=== PATIENT | female | born 2005 | race Caucasian/White ===

== ENCOUNTER 2025-02-03 19:08 | Emergency (ER) | payer BC, SELFPAY ==
--- OUTSIDE RECORDS SUMMARY | 2024-12-21 13:00 | XMS_ITS | Encounter Summary ---
Author Organization [facility] Address [address] [place] [address] Care Team Providers Care Carpenter'S Helper Name Role Phone Severino Lazo MD Primary Care Provider Reason for Visit * Reason Comments ROUTINE HEALTH MAINTENANCE Encounter Details Date Type Department Care Team (Latest Contact Info) Description 12/21/2024 1:00 PM CDT Office Visit [facility] [address] [place] [phone] [place] [address] [place] [address] Adult general medical examination (Primary Dx); Counseling for control, oral contraceptives Social History Tobacco Use Types Packs/Day Years Used Date Smoking Tobacco: Never Smokeless Tobacco: Never Alcohol Use Standard Drinks/Week Comments Never 0 (1 standard drink = 0.6 oz pur e alcohol) PHQ-2 Answer Date Recorded PHQ-2 Score 0 12/30/2023 AUDIT-C Answer Date Recorded Q1: How often do you have a drink containing alc ohol? Monthly or less 12/21/2024 Q2: How many drinks containi ng alcohol do you have on a typical day when you are drinking? 1 or 2 12/21/2024 Q3: How often do you have si x or more drinks on one occasion? Never 12/21/2024 Hunger Vital Sign Answer Date Recorded Within the past 12 months, y ou worried that your food would run out before you got the money to buy more. Never true 12/22/19 25 Within the past 12 months, t he food you bought just didn't last and you didn't have money to get more. Never true 12/21/2024 PRAPARE - Transportation Answer Date Re corded In the past 12 months, has l ack of transportation kept you from medical appointments or from getting medications? No 12/09 In the past 12 months, has l ack of transportation kept you from meetings, work, or from getting things needed for daily living? No 12/21/2024 Housing Stability Vital Sign Answer Darion e Recorded In the last 12 months, was t here a time when you were not able to pay the mortgage or rent on time? No 12/21/2024 In the past 12 months, how m any times have you moved where you were living? 2 12/21/2024 At any time in the past 12 m [facility], were you homeless or living in a halfway (including now)? No 12/21/2024 Comments No Sex and Gender Information Value Date Recorded Sex Assigned at Not on file Legal Sex Female 4:56 PM SQL ARCHITECT Gender Identity Not on file Sexual Orientation Not on file documented as of this encounter Last Filed Vital Signs Vital Sign Reading Time Taken Comments Blood Pressure 118/74 12/21/2024 12:58 PM CDT Pulse 56 12/21/2024 12:58 PM CDT Temperature - - Respiratory Rate - - Oxygen Saturation - - Inhaled Oxygen Concentration - - Weight 60.3 kg (133 lb) 12/21/2024 12:58 PM CDT Height 169 cm (5' 6.54) 12/21/2024 12:58 PM CDT Body Mass Index 21.12 12/21/2024 12:58 PM CDT documented in this encounter Functional Status * AUDIT-C Score Answer Date of Assessment Author 1 12/21/2024 1:11 PM CDT Yemi Lazo MD * Question Answer Date of Assessment Author Q1: How often do you have a drink containing alcohol? Monthly or less 12/21/2024 1:11 PM YULIAT Severino Lazo MD Q2: How many drinks containing alcohol do you have on a typical day when you are drinking? 1 or 2 12/21/2024 1:11 PM CDT Jazzy Lazo MD Q3: How often do you have six or more drinks on one occasion? Never 12/21/2024 1:11 PM CDT Severino Lazo MD documented as of this encounter Patient Instructions * Patient Instructions* Say, Eufemia Bragg LPN - 12/21/2024 1:00 PM CDT 18 to 21 Years: Well Exam for Young Adults Guidelines for healthy growth and development For help after hours: [facility] patients contact the Nurse Line at [phone]. [facility] patients should contact the Careline at [phone] or [phone]. Hgrc-hyb-nwjzhou medicine Aspirin: DO NOT USE Acetaminophen (Tylenol or Tempra) dose: Please see approved dosing tables or confirm dose with yourclinic. Ibuprofen (Advil or Motrin) dose: Please see approved dosing tables or confirm dose with your clinic. Measurements Weight: 133 lb (60.3 kg) Height: 5' 6.54 (1.69 m) Blood Pressure: 118/74 Blood pressure %barbara are not available for patients who are 18 years or older. Body Mass Index: Estimated body mass index is 21.12 kg/m?? as calculated from the following: Height as of this encounter: 5' 6.54 (1.69 m). Weight as of this encounter: 133 lb (60.3 kg). Nutrition Eat 3 nutritious meals a day, including breakfast. Healthy food choices include low-fat or skim (fat free) milk, yogurt, fruits, vegetables, whole grains, lean meats and beans. Choose water instead of soda, sports drinks or coffee. Limit foods high in fat or sugar, such as candy, chips and soda. Physical activity Get at least 60 minutes of physical activity a day. You do not have to do the 60 minutes of activity all at once. Break activity up into several shorter times throughout the day. Drink plenty of water during physical activity to help prevent cramps, exhaustion and heat stroke. Limit screen time to no more than 2 hours a day, including TV, DVDs, video games, texting and computer time other than for work or school. Social and emotional health Staying connected with family is important. Family can help you solve problems and support you during difficult situations. If you feel depressed or alone, or are having difficulty solving a problem, reach out for help and support. Making and maintaining friendships is an important life skill. Knowing when a friendship is no longer good for you also is important. As you leave high school and pursue new goals and interests, you may interact less with some friends. Changing friendships is a normal part of growing up and becoming an adult. Support friends who choose not to use tobacco, alcohol, drugs, steroids or diet pills. Avoid situations where drugs or alcohol are available. Stay involved in activities that allow you to express yourself and to learn--to be you and enjoy life. Experiencing alternating periods of good and bad times, or feeling up and down in daily life, is normal as you get older and take on more responsibility. Identify positive coping skills to deal with stress. Find nonviolent ways to handle your anger or fear. Walk away if necessary. Fighting and carrying weapons can be dangerous. School performance Get 9 hours of sleep every night. Not getting enough sleep can affect your ability to learn, listen, concentrate and solve problems. Go to bed and get up at the same time each day, even on weekends. Turn off cell phones and other electronic devices at least an hour before bed. Use the bedroom only for sleep. Keep your room quiet and dark. Set a regular time and place to do homework. The room should be quiet and free from distractions, such as TV, cell phones, music or videos. Take responsibility for getting to a job or school and getting your homework done on time. Regular attendance at school is important. Start sharing and discussing your future plans and goals for college and work with your family, teachers and school guidance counselor. Sexuality Abstaining from vaginal, anal and oral sex is the safest way to prevent and sexually transmitted diseases (STD). If sexually active, reduce the risk of infection with an STD by using a condom with vaginal, anal and oral sex every time. Using a condom and another type of prescription control with sexual intercourse is important to prevent . Talk to your clinician. Healthy dating relationships are built on respect, concern and enjoying activities together. When dating, or in any sexual situations, ???No?? means NO. Listen to and respect what another person is telling you. Saying ???No?? is OK. Plan how you can avoid risky places and relationships. For example, using drugs or alcohol can raise the risk of unwanted sex or other risky behaviors. Safety Make healthy decision about sex, tobacco, alcohol and other drugs. Take a self-defense class to learn how to protect yourself. Do not get in a car with someone you do not know or who has been drinking alcohol or using drugs. Have a plan for how to get help if you are feeling unsafe. Call for help if a situation gets dangerous. If you drink alcohol, do not drink when driving, swimming, boating, riding a bike or motorcycle or when responsible for younger children. Do not text or talk on a cell phone while driving. Silence your phone and put it where you cannot reach or see it to avoid using while driving. If you need to use your phone, drive to a safe place and come to a complete stop first. Wear protective gear and use safety equipment when playing sports, including a mouth guard. Always wear a helmet when skateboarding, snowboarding, skiing and riding a bike, motorcycle or ATV. Always wear your seat belt. Wear earplugs or other ear protection when you are exposed to loud noises, such as music concerts, lawn equipment or other loud working conditions. Put on sunscreen with SPF 30 or higher 30 minutes before you go outside. Reapply sunscreen every 2 to 4 hours or after you have been in the water or sweating. [facility] [place] your teeth 2 times a day and floss at least 1 time a day. Visit the dentist every 6 months. Healthcare decisions You have the right to have all medical information kept private, including from your parents, unless you are in a special guardianship. You will need to give your doctor and healthcare team permission to talk to your parents, even about making appointments. Take responsibility with your healthcare. Schedule your own appointments. Talk honestly and openly with your clinician about your symptoms, medical history and lifestyle. Understand your medical condition, if you have one. Know what medications you need to take and how to get prescriptions refilled. Understand your healthcare insurance benefits. Websites [facility]: www.[employer] [facility]: www.[employer] [facility]: www.[facility] [place]: www.[facility]: www.[facility] [place] [employer]: www.healthychildren.org [facility] Participates in the Vaccines for Children Program (VFC) Children 18 years of age and younger are eligible for free vaccines through the VFC program at [facility] if they: Are enrolled in: A CrossReader Healthcare Program ([place] SEC Watch, [facility] or a prepaid Medical Assistance Program [place] Medicaid Do not have health insurance Are of or [place] heritage The VFC program covers the cost of routine vaccines. There is a fee to cover the cost of giving thevaccine. The fee is $21.22 for [place] participants and $20.83 for [place] participants. If youhave insurance through a [place] Healthcare Program or [place] Medicaid, you are not billed forthis fee. Other patients are billed for it. If you receive a bill for the cost of the vaccine or if you are unable to pay the administration fee, please contact Customer Service at: [facility] [phone] [facility], [facility] [phone] or [facility] [phone] [facility] [phone] [facility] [phone] [facility] [phone] [facility] [phone] [facility] [phone] Children who have health insurance but, the insurance does not pay for immunizations can get low-cost immunizations at [facility]. For more information, see Can My Child Get Free or Low Cost Shots? on the Critical access hospital's website, or Immunizations: Vaccines for Children Program Information for Parents and Patients on the [facility] website For next Well Child Check, return in 1 year. documented in this encounter Progress Notes * Severino Lazo MD - 12/21/2024 1:00 PM CDT Subjective: Lourdes Pope is a 19 y.o. female presenting for a Well Child Visit. Chief Complaint: Chief Complaint Patient presents with ROUTINE HEALTH MAINTENANCE Accompanied by: Unaccompanied Concerns: None Needs refill of OCP. No side effects. No history of blood clot, migraine with aura, tobacco use or hypertension Studying vet medicine Normal diet, eats variety of foods Stays active[place] Objective: Vitals: BP 118/74 (BP Location: Left Arm, BP Cuff Size: Regular) Pulse (!) 56 Ht 5' 6.54 (1.69m) Wt 133 lb (60.3 kg) BMI 21.12 kg/m?? General: Active, alert, no distress Head: Normal Eyes: Appear normal ENT: Ears: No deformity, Normal TM's, Nose: Normal, no obstruction, and Mouth: Normal, palate intact Neck: Normal, full range of motion, no mass, no thyromegaly Chest: Normal respiratory effort, lungs clear to auscultation, normal shape, normal breathing pattern Heart: Regular rate and rhythm, normal heart sounds, no murmurs Abdomen: Normal appearance, soft, non-tender Genitourinary: deferred Musculoskeletal: Extremities normal Skin: No rashes or lesions Neurologic: Non focal, normal gait Assessment: Lourdes was seen today for routine health maintenance. Diagnoses and all orders for this visit: Adult general medical examination No concerns. Declined MenB after discussion. Declined STI screening Counseling for control, oral contraceptives Needs refill of OCP. No side effects. No history of blood clot, migraine with aura, tobacco use or hypertension - norgestimate-eth estradiol (JUAN J) 0.25-35 MG-MCG tablet; Take 1 Tablet by mouth daily. See patient instructions for details Social and environmental risks assessed and concerns addressed. Social Emotional Screening: Normal, concerns addressed Immunizations: Immunizations some/all were deferred/declined after discussion of risks of deferringimmunizations. Declined MenB Dental: Dental hygiene discussed and verbal referral for dental visit provided. Routine anticipatory guidance discussed with caregiver and concerns addressed. Hailee Lazo MD documented in this encounter Plan of Treatment Not on file documented as of this encounter Visit Diagnoses Diagnosis Adult general medical examination- Primary Unspecified general medical examination Counseling for control, oral contraceptives General counseling for prescription of oral contraceptives documented in this encounter Care Teams Carpenter'S Helper Relationship Specialty [place] [address] [place] [address] PCP - General Family Practice 12/21/24 documented as of this encounter
[2025-02-03] VITALS (17 sets, daily range): BP systolic 108–136; BP diastolic 67–96; PULSE 60–82; RESP 12–18; TEMP 36.8; O2SAT 88–100; BMI 21.8
--- OUTSIDE RECORDS SUMMARY | 2025-02-03 19:10 | XMS_ITS | Clinical Summary ---
Author Organization [facility] Address [address] [place] [address] Care Team Providers Care Nocturnist Physician Name Role Phone [facility] Primary Care Provider Allergies No known active allergies Medications No known medications Social History Tobacco Use Types Packs/Day Years Used Date Smoking Tobacco: Never Assessed Adolescent Education Answer Date Record ed Getting School Help Needed Not on file 08/19 Comments No Sex and Gender Information Value Date Recorded Sex Assigned at Not on file Legal Sex Female 4:49 AM CDC ASSOCIATE Gender Identity Not on file Sexual Orientation Not on file Last Filed Vital Signs Vital Sign Reading Time Taken Comments Blood Pressure 112/78 08/21/2023 11:30 AM CDT Pulse 109 08/21/2023 11:30 AM CDT Temperature 37.7 C (99.8 F) 08/21/2023 10:15 AM CDT Respiratory Rate 18 08/21/2023 7:49 AM CDT Oxygen Saturation 98% 08/21/2023 11: 30 AM CDT Inhaled Oxygen Concentration - - Weight 60.7 kg (133 lb 13.1 oz) 08/21/2023 7:49 AM CDT Height 167.6 cm (5' 6) 08/21/2023 7:49 AM CDT Body Mass Index 21.6 08/21/2023 7:49 AM CDT Plan of Treatment Health Maintenance Due Date Last Done Comments ADVANCE CARE PLANNING 2004 ANNUAL REVIEW OF HM ORDERS 2004 YEARLY PREVENTIVE VISIT 11/15/2007 HIV SCREENING 11/15/2019 MENINGITIS B VACCINE (1 of 2 - Standard) 2020 HEPATITIS C SCREENING 2022 PHQ-2 (once per calendar year) 2024 CHLAMYDIA SCREENING 05/29/2024 05/29/2023 COVID-19 VACCINE ( season) 2025 05/27/2021, 10/17/2020, 09/26/2020 INFLUENZA VACCINE (#1) 2025 , 03/08/2020, 02/21/2019, Additional history exists DTAP/TDAP/TD VACCINE (7 - Td or Tdap) 12/23/2025 12/24/2015, 12/26/2011, 04/07/2006, Additional history exists ZOSTER VACCINE (1 of 2) 2054 HEPATITIS B VACCINE Completed 08/18/2005, 05/28/2005, 04/11/2005 PNEUMOCOCCAL VACCINE: PEDIATRICS (0 to 5 YEARS) AND AT-RISK PATIENTS (6 to 49 YEARS) Aged Out 11/26/2005, 08/18/2005, 05/28/2005, Additional history exists No longer eligible based on patient's age to complete this topic HPV VACCINE Completed 03/08/2020, 02/21/2019 MENINGITIS VACCINE Completed 04/29/2021, 12/24/[address] [place] [address] WITH [facility] WITH BS Care Teams Nocturnist Physician Relationship Specialty Start Date End Date [address] [address] PCP - General 08/20/23
--- OUTSIDE RECORDS SUMMARY | 2025-02-03 19:10 | XMS_ITS | Clinical Summary ---
Author Organization [facility] Address [address] [place] [address] Care Team Providers Care Sander Portable Machine Name Role Phone Severino Lazo MD Primary Care Provider Source Comments You are receiving this document as you are listed as the primary care provider,follow-up provider, or the patient has been referred to you for consultation.This is in compliance with the Medicare andPeoples Hospitalca[facility] EHR Incentive Program,which states Providers who transition their patient to another setting of careor provider of care or refers their patient to another provider of care shouldprovide summary care record for each transition of care or referral. [facility] Allergies No known active allergies Medications norgestimate-eth estradiol (JUAN J) 0.25-35 MG-MCG tabletIndications:C ounseling for control, oral contraceptives Take 1 Tablet by mouth daily. 84 Tablet 3 5 Active Active Problems Problem Noted Date Diagnosed Date Healthy infant 04/30/2012 Overview (12/31/2016): Healthy infant or child Encounters Date Type Department Care Team Description 12/21/2024 1:00 PM CDT Office Visit [facility] [address] [place] [phone] Severino Lazo MD Adult general medical examination (Primary Dx); Counseling for control, oral contraceptives from Last 3 Months Immunizations Immunization Administration Dates Next Due 9vHPV (Gardasil 9) 03/08/2020,02/21/2019 DTaP 04/07/2006 NUmB-OruG-QFV (Pediarix) 08/18/2005,05/28/2005,1 2004 DTaP-IPV (Kinrix, 4-6 yrs) 12/26/2011 HepA Ped/Adol (1-18 yrs) 06/24/2006,11/26/2005 Hib (ActHIB) 04/07/2006 Hib (PedvaxHIB) 05/28/2005,04/11/2005 Influenza IIV4 (Quadrivalent ) 0.5mL (30331) 04/29/2021,03/08/2020,02/21/2019,2015,01/11/2014 Influenza LAIV3 2-49 years (Flumist) 03/30/2015 Influenza Vaccine TIV 6-35 m onths 100% Pres Free (Imm Clinic) 04/07/2006,05/28/2005 MCV4 Menveo 2m.+ (two vial) 04/29/2021, 6 MMR 12/26/2011,04/07/2006 MMRV (ProQuad) 04/07/2006 Pfizer Monovalent 12+ Purple Top 05/27/2021,06/0 01/2021,09/26/2020 Pneumococcal 7, PED 11/26/2005, 6,05/28/2005,2004 Tdap 12/24/2015 Varicella 12/26/2011,04/07/2006 Family History Medical History Relation Name Comments Asthma Negative Family History Diabetes Negative Family History Heart Negative Family History Relation Name Status Comments Father Alive Mother Alive Brother 1 Alive Brother 2 Alive Sister Alive Social History Tobacco Use Types Packs/Day Years Used Date Smoking Tobacco: Never Smokeless Tobacco: Never Tobacco Cessation:Counseling Given: Not Answered Alcohol Use Standard Drinks/Week Comments Never 0 [...] any time in the past 12 m [facility], were you homeless or living in a detention (including now)? No 12/21/2024 Comments No Sex and Gender Information Value Date Recorded Sex Assigned at Not on file Legal Sex Female 4:56 PM TOOL AND DIE REPAIR Gender Identity Not on file Sexual Orientation Not on file Last Filed Vital Signs Vital Sign Reading Time Taken Comments Blood Pressure 118/74 12/21/2024 12:58 PM CDT Pulse 56 12/21/2024 12:58 PM CDT Temperature 36.6 C (97.9 F) 05/12/2024 3:28 PM TOOL AND DIE REPAIR Respiratory Rate 18 04/21/2024 12:12 PM TOOL AND DIE REPAIR Oxygen Saturation 98% 05/12/2024 3:54 PM TOOL AND DIE REPAIR Inhaled Oxygen Concentration - - Weight 60.3 kg (133 lb) 12/21/2024 12:58 PM CDT Height 169 cm (5' 6.54) 12/21/2024 12:58 PM CDT Body Mass Index 21.12 12/21/2024 12:58 PM CDT Plan of Treatment Health Maintenance Due Date Last Done Comments MenB Immunization Discussion 2004 Chlamydia 10/19/2024 10/20/2023, 05/29/2023 COVID-19 Vaccine ( season) 2025 05/27/2021, 10/17/2020, 09/26/2020 Influenza Vaccine (#1) 2025 , 03/08/2020, 02/21/2019, Additional history exists Adult Preventive Visit 12/21/2025 , 12/30/2023, 07/24/2022, Additional history exists DTaP/Tdap/Td Vaccine (7 - Tdap) 12/23/2025 12/24/2015, 12/26/2011, 04/07/2006, Additional history exists Zoster/Shingles Vaccine (1 of 2) 2054 HepB Vaccine Completed 08/18/2005, 05/11, 04/11/2005 Pneumococcal Vaccine Aged Out 11/26/2005, 08/18/2005, 05/28/2005, Additional history exists No longer eligible based on patient's age to complete this topic Hib Vaccine Completed 04/07/2006, 05/11, 04/11/2005 HepA Vaccine Completed 06/24/2006, 11/26/2005 IPV (Polio) Vaccine Completed 12/26/2011, 08/18/2005, 05/28/2005, Additional history exists Varicella Vaccine Completed 12/26/2011, , 04/07/2006 HPV Vaccine Completed 03/08/2020, 02/21/2019 MCV4 Vaccine Completed 04/29/2021, 12/24/2015 HIV Screening (Preventive Services) Completed 10/20/2023 Hep C Screening (Preventive Services) Completed 12/30/2023 Procedures Procedure Name Priority Date/Time Associated Diagnosis Comments HEPATITIS C ANTIBODY, WITH REFLEX (ANTI-HCV) Routine 12/30/2023 4:01 PM CDT Need for hepatitis C screening test HIV 1/2 AG/AB 4TH GEN Routine 10/20/2023 11:30 AM CDT Dysuria CHLAMYDIA & GC (14 YEARS & OLDER) Routine 10/20/2023 11:14 AM CDT Dysuria from Last 3 Months or Most Recently Relevant to Health Maintenance Results * Hepatitis C Antibody, with Reflex (12/30/2023 4:01 PM CDT) Hepatitis C Antibody Negative (Non Reactive) Negative (Non Reactive) 12/30/2023 9:18 PM CDT [facility] Comment:Antibodies to HCV no t detected. Does not exclude the possiblity of exposure to HCV. Blood Venipuncture / Unknown 12/30/2023 4:01 PM CDT 12/30/2023 4:01 PM CDT us Silvia Mena BS LAB_1 Final Result [facility] [address] * HIV 1/2 Ag/Ab 4th Generation (10/20/2023 11:30 AM CDT) HIV 1/2 Antigen/Antib shiraz (4th generation) Negative (Non Reactive) Negative (Non Reactive) 10/20/2023 5:44 PM CDT [facility] Comment:HIV-1 p24 Antigen an d HIV-1/HIV-2 Antibody not detected Blood Venipuncture / Unknown 10/20/2023 11:30 AM CDT 10/20/2023 11:30 AM CDT us Fred Zuniga MBBS LAB_1 Final Result [facility] [address] [place], [place] [id number] [place] [address] * Chlamydia & GC (14 Years and Older): Vagina (10/20/2023 11:14 AM CDT) Chlamydia Trachomatis STD Not Detected Not Detected 10/20/2023 11:56 PM CDT [facility] N. gonorrhoeae STD Not Detected Not Detected 10/20/2023 11:56 PM CDT [facility] Swab STD SPECIMEN FROM VAGINA / Unknown Non-blood Collection / Unknown 10/20/2023 11:14 AM CDT 10/20/2023 11:28 AM CDT Narrative [facility] - 10/20/2023 11:56 PM CDT Test performed by Fire Sprinkler Service Technician Mediated Amplification (TMA). Fred BERNAL LAB_1 Final Result [facility] [address] from Last 3 Months or Most Recently Relevant to Health Maintenance Insurance [facility] Care Teams Sander Portable Machine Relationship Specialty [place] [address] [place] [address] PCP - General Family Practice 12/21/24
--- OUTSIDE RECORDS SUMMARY | 2025-02-03 19:10 | XMS_ITS | Encounter Summary ---
[facility] Address [address] [place] [address] Care Team Providers Care Linux Systems Analyst Name Role Phone Severino Lazo MD Primary Care Provider Encounter Details Date Type Department Care Team (Late st Contact Info) Description 01/13/2018 Correspondence [facility] [address] [place], [place] [id number] Tika Muñoz, PC ANALYST, WEATHERIZATION DIRECTOR [address] [facility] [address] [place] [address] [employer] Social History Tobacco Use Types Packs/Day Years Used Date Smoking Tobacco: Never Smokeless Tobacco: Never Comments Unknown Sex and Gender Information Value Date Recorded Sex Assigned at Not on file Legal Sex Female 4:56 PM TONAL REGULATOR Gender Identity Not on file Sexual Orientation Not on file documented as of this encounter Plan of Treatment Not on file documented as of this encounter Visit Diagnoses Not on filedocumented in this encounter Care Teams Linux Systems Analyst Relationship Specialty [place] [id number] [place] [address] PCP - General Family Practice 12/21/24 documented as of this encounter
--- NOTE | 2025-02-03 19:21 | CRLHL7_ITS ---
For Patients: As a result of the Century Cures Act, medical imaging exams and procedure reports are released immediately into your electronic medical record. You may view this report before your referring provider. If you have questions, please contact your health care provider. INDICATION: Trauma. COMPARISON: None. TECHNIQUE: Noncontrast CT cervical spine. FINDINGS: Straightening of the normal cervical desist which may be secondary to muscle spasm patient positioning. Normal vertebral body facet alignment. No fractures. No vertebral body loss of height. No spondylolisthesis. No fractures of the visualized upper ribs. C1-2: No spinal canal narrowing. C2-3: No spinal canal or neural foraminal narrowing. C3-4, C4-5 and C5-6: No spinal canal or neural foraminal narrowing. C6-7: No spinal canal or neural foraminal narrowing. C7-T1: No spinal canal for neural foraminal narrowing. Lung apices are clear. IMPRESSION: 1. Straightening of the midcervical lordosis. Otherwise, normal alignment. No fractures. 2. No prevertebral soft tissue swelling. 3. No spinal canal or neural foraminal narrowing at all levels. Please note that all CT scans at this facility use dose modulation, iterative reconstruction, and/or weight-based dosing when appropriate to reduce radiation dose to as low as reasonably achievable. Dictated by Constantino Washington MD @ 02/03/2025 8:12:09 PM (Electronically Signed)
--- NOTE | 2025-02-03 19:21 | CRLHL7_ITS ---
For Patients: As a result of the Century Cures Act, medical imaging exams and procedure reports are released immediately into your electronic medical record. You may view this report before your referring provider. If you have questions, please contact your health care provider. INDICATION: Trauma. Thrown from horse COMPARISON: None. TECHNIQUE: Noncontrast CT head. FINDINGS: Normal brain parenchymal morphology. No acute intracranial hemorrhage, acute infarct, focal edema, mass effect, or fracture. No midline shift. No abnormal ventricular dilatation. Normal calvarium and skull base. Mastoid air cells are clear. Near complete opacification of the paranasal sinuses. IMPRESSION: 1. No acute intracranial abnormality. 2. Near complete opacification of the paranasal sinuses. Please note that all CT scans at this facility use dose modulation, iterative reconstruction, and/or weight-based dosing when appropriate to reduce radiation dose to as low as reasonably achievable. Dictated by Constantino Washington MD @ 02/03/2025 8:07:22 PM (Electronically Signed)
--- NOTE | 2025-02-03 19:21 | CRLHL7_ITS ---
For Patients: As a result of the Century Cures Act, medical imaging exams and procedure reports are released immediately into your electronic medical record. You may view this report before your referring provider. If you have questions, please contact your health care provider. Indication: From horse Technique: Volumetric multidetector CT images of the chest were obtained after the administration of IV contrast. 75 cc Isovue 370 low osmolar intravenous contrast Comparison: None available. Findings: The thoracic inlet and thyroid gland are unremarkable. The thoracic aorta is nonaneurysmal. There is no central filling defect to suggest pulmonary embolism. There is no mediastinal, hilar or axillary adenopathy. The trachea and bronchi are well aerated without significant bronchiectasis. There is demonstration of a trace focal contusion and likely pneumatocele versus trace pneumothorax appreciated within the right posterior superior upper lobe best appreciated on series 6, image 79. The visualized ribs are grossly intact without evidence of displaced rib injury. Mildly comminuted fracture of the mid right clavicle is appreciated. There is no evidence of pulmonary mass or suspicious pulmonary nodule. The partially visualized upper abdominal viscera are within normal limits. The thoracic vertebral body heights remain intact alignment without significant degenerative change or acute osseous abnormality. Impression: 1. Demonstration of a focal pulmonary contusion within the posterior superior aspect of the right lower lobe with likely an associated pneumatocele versus a trace focal pneumothorax seen best on series 6 images 79 through 82. 2. Comminuted fracture of the mid right clavicle. 3. Otherwise, no evidence of a displaced rib fracture or large volume pneumothorax/acute cardiopulmonary abnormality. Please note that all CT scans at this facility use dose modulation, iterative reconstruction, and/or weight-based dosing when appropriate to reduce radiation dose to as low as reasonably achievable. Dictated by Jonah Shen MD @ 02/03/2025 8:32:02 PM (Electronically Signed)
--- NOTE | 2025-02-03 19:27 | CRLHL7_ITS ---
For Patients: As a result of the Cures Act, medical imaging exams and procedure reports are released immediately into your electronic medical record. You may view this report before your referring provider. If you have questions, please contact your health care provider. INDICATION: Fall from horse. Comparison none. TECHNIQUE: Single view of the chest. FINDINGS: Displaced fracture of the mid right clavicle. No fractures visualized ribs. Lungs are clear. No pleural effusions. No pneumothorax. Normal cardiomediastinal silhouette. IMPRESSION: Displaced fracture of the mid right clavicle. Dictated by Constantino Washington MD @ 02/03/2025 7:49:33 PM (Electronically Signed)
[2025-02-03 19:57] LABS: Albumin* 4.6 g/dL (3.3-5.0); Chloride* 104 mmol/L (96-114); Potassium* 4.1 mmol/L (3.6-5.1); Sodium* 141 mmol/L (135-149)
[2025-02-03 20:00] LABS: Alanine Aminotransferase* 35 U/L (4-35); Alkaline Phosphatase* 70 U/L (40-150); Anion Gap 10 mEq/L (7-15); Aspartate Amino Transferase* 81 U/L (12-35); Bilirubin Total* 0.3 mg/dL (0.1-1.5); Blood Urea Nitrogen* 15 mg/dL (5-24); Calcium* 9.2 mg/dL (8.4-10.6); Carbon Dioxide* 27 mmol/L (20-32); Creatinine* 0.9 mg/dL (0.5-1.5); Est. Creatinine Clearance* 93.34; Estimated Glomerular Filt Rate 94 ml/min; Glucose* 99 mg/dL (60-115); Total Protein* 8.2 g/dL (6.0-8.3)
--- NOTE | 2025-02-03 20:19 | ED.GENADULT ---
HPI - General Adult General Date Seen: 02/03/25 Chief complaint: Fall/Minor Trauma Stated complaint: Thrown from horse, hit head, R shoulder injury Time Seen by Provider: 02/03/25 19:20 History of Present Illness HPI narrative: Patient is a 19-year-old young woman who is here with her mom after being thrown from a horse. Worse was going at some speed and she went over the front of it, she landed primarily on her right shoulder. She did hit her head, was not wearing a helmet. No loss of consciousness, does not have a severe headache but does have a little bit of a headache. Has some pain primarily in the right collarbone which radiates into the right shoulder and a little bit into the right neck but she does not have any posterior cervical pain. It hurts to breathe but she is not short of breath. She denies any abdominal or isolated back pain, does not have any weakness or numbness, difficulty moving her arms or legs with the exception of her right arm which is painful in the shoulder. General health is good, no medications aside from control and no medication allergies. Related Data Home Medications ?Medication ?Instructions ?Recorded ?Confirmed norgestimate 0.25 mg-ethinyl 1 tab PO DAILY 02/03/25 02/03/25 estradiol 0.035 mg tablet (Aure) Allergies Allergy/AdvReac Type Severity Reaction Status Date / Time No Known Drug Allergies Allergy Verified 02/03/25 19:47 Review of Systems Status of ROS: Reports: 10 or more systems reviewed and unremarkable except as noted in History and below PFSH [facility] Social History Smoking Status: Never smoker Do you use any of these nicotine containing products: None Second hand tobacco smoke exposure: No How often do you have a drink containing alcohol: never AUDIT-C Alcohol total score: 0 Non-prescribed substance use: denies use service: No Exam Narrative: Exam Narrative: Primary survey: Airway: Patent. Breathing: Nonlabored. Lungs clear. Circulation: Pulses intact. No external bleeding. Disability: GCS 15. Secondary survey: Vital signs reviewed In general, an alert, nontoxic young woman. She looks uncomfortable. Head: Normocephalic, atraumatic. Eyes: Pupils are equal reactive. Extraocular movements full. ENT: No facial trauma. Dentition intact. Neck: No midline cervical tenderness. No anterior neck trauma. Chest: No visible signs of chest trauma. No tenderness to palpation. Heart regular rate and rhythm. Lungs clear bilaterally. Abdomen: No visible signs of trauma. Soft, nondistended, nontender to palpation. Back: No visible signs of trauma. Nontender to palpation throughout the spine. Pelvis: Stable, nontender. Extremities: There is visible deformity over the clavicle on the right and tenderness in this area. No other clear shoulder injury. Distal CMS intact in the right arm. Other extremities are atraumatic. Neurologic: Alert, conversant, moves all extremities to command. Skin: Warm and dry, no abrasions or lacerations. Const: Vital Signs, click to edit/add: Vital Signs - 24 hr 02/03/25 19:12 02/03/25 19:24 02/03/25 19:26 Temperature 98.2 F Pulse Rate 60 60 Pulse Rate [Pulse Oximeter] 80 Respiratory Rate 16 Blood Pressure 113/81 Blood Pressure [Ri ght Forearm] 123/67 Pulse Oximetry 97 97 99 Oxygen Delivery Me thod Room Air 02/03/25 19:34 02/03/25 19:40 02/03/25 20:06 Temperature Pulse Rate 66 66 60 Pulse Rate [Pulse Oximeter] Respiratory Rate Blood Pressure Blood Pressure [Ri ght Forearm] Pulse Oximetry 100 97 100 Oxygen Delivery Me thod 02/03/25 20:08 02/03/25 20:10 02/03/25 20:11 Temperature Pulse Rate 60 73 66 Pulse Rate [Pulse Oximeter] Respiratory Rate 16 12 13 Blood Pressure 121/88 129/84 Blood Pressure [Ri ght Forearm] Pulse Oximetry 100 99 99 Oxygen Delivery Me thod 02/03/25 20:20 02/03/25 20:22 02/03/25 20:23 Temperature Pulse Rate 82 79 75 Pulse Rate [Pulse Oximeter] Respiratory Rate 13 18 18 Blood Pressure 136/83 Blood Pressure [Ri ght Forearm] Pulse Oximetry 88 96 93 Oxygen Delivery Me thod 02/03/25 20:32 02/03/25 20:40 02/03/25 20:41 Temperature Pulse Rate 71 68 Pulse Rate [Pulse Oximeter] Respiratory Rate 13 17 13 Blood Pressure 108/86 119/96 H Blood Pressure [Ri ght Forearm] Pulse Oximetry 100 100 Oxygen Delivery Me thod 02/03/25 21:00 02/03/25 21:02 Temperature Pulse Rate 62 72 Pulse Rate [Pulse Oximeter] Respiratory Rate 13 17 Blood Pressure 125/77 Blood Pressure [Ri ght Forearm] Pulse Oximetry 99 98 Oxygen Delivery Me thod Course Course ED Course: She presented by private vehicle, TTA was called on her arrival to the ER. She had a portable chest x-ray which by my review showed a clavicle fracture, did not see evidence of pneumothorax. CT scans done of the head, cervical spine, chest. By my review the head CT does not show any evidence of hemorrhage or fracture. Radiology reads the CT of the cervical spine is negative for any acute findings, some straightening of the normal cervical lordosis. Labs are reviewed and unremarkable. I reviewed all of the radiology reports, head and neck read as negative for acute findings. Chest CT read as showing the clavicle fracture as previously demonstrated on chest x-ray. They also note a tiny area of pulmonary contusion and a little focal collection of either pneumatocele or localized pneumothorax. I did agree review the images, I can see the area that is being mention by the radiologist although it is very subtle. I discussed these findings with Dr. Parks and she reviewed the CT as well. Patient is comfortable at this time, breathing easily, does not complain of chest pain or difficulty breathing, O2 sats are 100% on room air. Overall, I do not think transfer to a trauma center is indicated. Dr. Parks likewise agreed that transfer and even admission here is likely not needed given her overall clinical picture. Discussed all this with the patient and her mom. Offered observation here for few hours if they would like, but she says she would just prefer to go home. Patient will prescribe oxycodone for her in addition to scheduled ibuprofen and/or Tylenol. A sling was provided. I gave her a note for school, she apparently goes to school up in [place] would have a [address] I think is going to be difficult to do with her clavicle in the next few days here. Recommended orthopedic follow-up for the clavicle. Reviewed reasons to return in terms of chest pain, shortness of breath, they are comfortable with discharge. Vital Signs Vital signs: Initial Vital Signs Temperature 98.2 F 02/03/25 19:12 Temperature Source Temporal Artery Scan 02/03/25 19:12 Pulse Rate 80 02/03/25 19:12 Respiratory Rate 16 02/03/25 19:12 Blood Pressure 123/67 02/03/25 19:12 Blood Pressure Mean 85 02/03/25 19:12 Pulse Oximetry 97 02/03/25 19:12 Oxygen Delivery Method Room Air 02/03/25 19:12 Vital Signs Temperature 98.2 F 02/03/25 19:12 Pulse Rate 80 02/03/25 19:12 Respiratory Rate 16 02/03/25 19:12 Blood Pressure 123/67 02/03/25 19:12 Pulse Oximetry 97 02/03/25 19:12 Oxygen Delivery Method Room Air 02/03/25 19:12 Temperature 98.2 F 02/03/25 19:12 Pulse Rate 72 02/03/25 21:02 Respiratory Rate 17 02/03/25 21:02 Blood Pressure 125/77 02/03/25 21:02 Pulse Oximetry 98 02/03/25 21:02 Oxygen Delivery Method Room Air 02/03/25 19:12 Medications Administered Medications: Discontinued Medications Generic Name Dose Route Start Last Admin Trade Name Freq PRN Reason Stop Dose Admin Hydromorphone HCl 0.5 mg 02/03/25 19:20 02/03/25 19:30 Hydromorphone 0.5 Mg/0.5 Ml Inj IVP 02/03/25 19:21 0.5 mg ONCE ONE Administration Sodium Chloride 1,000 mls @ 1,000 mls/hr 02/03/25 19:30 02/03/25 19:30 0.9 % Sodium Chloride 1000 Ml IV 02/03/25 20:29 1,000 mls/hr .Q1H [facility] Administration Medical Decision Making Lab Data Labs: Lab Results 02/03/25 Range/Units 19:22 WBC 7.29 (4.50-11.00) K/uL RBC 4.52 (4.00-5.20) m/uL Hgb 13.4 (12.0-16.0) gm/dL Hct 40.4 (33.0-51.0) % MCV 89 (80-100) fL MCH 30 (26-34) pg MCHC 33 (32-36) gm/dL RDW Coeff of Russell 11.6 (11.5-15.5) % Plt Count 339 (140-440) K/uL Neut % (Auto) 50.7 (42.0-72.0) % Lymph % (Auto) 40.1 (20-44) % [place] % (Auto) 5.3 (0.0-11.0) % Eos % (Auto) 3.3 (0.0-7.0) % Baso % (Auto) 0.5 (0.0-3.0) % Neut # (Auto) 3.69 (1.7-7.0) K/uL Lymph # (Auto) 2.92 H (0.90-2.90) K/uL [place] # (Auto) 0.40 (0.00-0.90) K/UL Eos # (Auto) 0.24 (0.00-0.50) K/uL Baso # (Auto) 0.04 (0.00-0.30) K/uL Abs Immat Gran (auto) 0.01 (0.00-0.30) K/uL Imm/Tot Granulo (auto) 0.1 % Sodium 141 (135-149) mmol/L Potassium 4.1 (3.6-5.1) mmol/L Chloride 104 (96-114) mmol/L Carbon Dioxide 27 (20-32) mmol/L Anion Gap 10 (7-15) mEq/L BUN 15 (5-24) mg/dL Creatinine 0.9 (0.5-1.5) mg/dL Estimated Creat Clear 93.34 Estimated GFR 94 ml/min Glucose 99 (60-115) mg/dL Calcium 9.2 (8.4-10.6) mg/dL Total Bilirubin 0.3 (0.1-1.5) mg/dL AST 81 H (12-35) U/L ALT 35 (4-35) U/L Alkaline Phosphatase 70 (40-150) U/L Total Protein 8.2 (6.0-8.3) g/dL Albumin 4.6 (3.3-5.0) g/dL Imaging Data CT scan - head: Attestation: I have reviewed the pertinent imaging results. Radiologist's impression: Patient: Lourdes Pope MR#: [id number] : 2005 Acct:[id number] Loc: ED Service Date: 02/03/[address]: Ordering Physician: Sophie Lynn M.D. Date of Service: 02/03/25 Procedure(s): CT head/brain wo con Accession Number(s): [id number] cc: Sophie Lynn M.D.; Provider,Not a Local~ For Patients: As a result of the Cures Act, medical imaging exams and procedure reports are released immediately into your electronic medical record. You may view this report before your referring provider. If you have questions, please contact your health care provider. INDICATION: Trauma. Thrown from horse COMPARISON: None. TECHNIQUE: Noncontrast CT head. FINDINGS: Normal brain parenchymal morphology. No acute intracranial hemorrhage, acute infarct, focal edema, mass effect, or fracture. No midline shift. No abnormal ventricular dilatation. Normal calvarium and skull base. Mastoid air cells are clear. Near complete opacification of the paranasal sinuses. IMPRESSION: 1. No acute intracranial abnormality. 2. Near complete opacification of the paranasal sinuses. Please note that all CT scans at this facility use dose modulation, iterative reconstruction, and/or weight-based dosing when appropriate to reduce radiation dose to as low as reasonably achievable. Dictated by Constantino Washington MD @ 02/03/2025 8:07:[address]- Other: Attestation: I have reviewed the pertinent imaging results. Radiologist's impression: Patient: Lourdes Pope MR#: [id number] : 2005 Acct:[id number] Loc: ED Service Date: 02/03/[address]: Ordering Physician: Sophie Lynn M.D. Date of Service: 02/03/25 Procedure(s): CT cervical spine wo con Accession Number(s): [id number] cc: Sophie Lynn M.D.; Provider,Not a Local~ For Patients: As a result of the Cures Act, medical imaging exams and procedure reports are released immediately into your electronic medical record. You may view this report before your referring provider. If you have questions, please contact your health care provider. INDICATION: Trauma. COMPARISON: None. TECHNIQUE: Noncontrast CT cervical spine. FINDINGS: Straightening of the normal cervical desist which may be secondary to muscle spasm patient positioning. Normal vertebral body facet alignment. No fractures. No vertebral body loss of height. No spondylolisthesis. No fractures of the visualized upper ribs. C1-2: No spinal canal narrowing. C2-3: No spinal canal or neural foraminal narrowing. C3-4, C4-5 and C5-6: No spinal canal or neural foraminal narrowing. C6-7: No spinal canal or neural foraminal narrowing. C7-T1: No spinal canal for neural foraminal narrowing. Lung apices are clear. IMPRESSION: 1. Straightening of the midcervical lordosis. Otherwise, normal alignment. No fractures. 2. No prevertebral soft tissue swelling. 3. No spinal canal or neural foraminal narrowing at all levels. Please note that all CT scans at this facility use dose modulation, iterative reconstruction, and/or weight-based dosing when appropriate to reduce radiation dose to as low as reasonably achievable. Dictated by Constantino Washington MD @ 02/03/2025 8:12:[address] scan - chest: Attestation: I have reviewed the pertinent imaging results. Radiologist's impression: Patient: Lourdes Pope MR#: [id number] : 2005 Acct:[id number] Loc: ED Service Date: 02/03/[address]: Ordering Physician: Sophie Lynn M.D. Date of Service: 02/03/25 Procedure(s): CT chest w con Accession Number(s): [id number] cc: Sophie Lynn M.D.; Provider,Not a Local~ For Patients: As a result of the Cures Act, medical imaging exams and procedure reports are released immediately into your electronic medical record. You may view this report before your referring provider. If you have questions, please contact your health care provider. Indication: From horse Technique: Volumetric multidetector CT images of the chest were obtained after the administration of IV contrast. 75 cc Isovue 370 low osmolar intravenous contrast Comparison: None available. Findings: The thoracic inlet and thyroid gland are unremarkable. The thoracic aorta is nonaneurysmal. There is no central filling defect to suggest pulmonary embolism. There is no mediastinal, hilar or axillary adenopathy. The trachea and bronchi are well aerated without significant bronchiectasis. There is demonstration of a trace focal contusion and likely pneumatocele versus trace pneumothorax appreciated within the right posterior superior upper lobe best appreciated on series 6, image 79. The visualized ribs are grossly intact without evidence of displaced rib injury. Mildly comminuted fracture of the mid right clavicle is appreciated. There is no evidence of pulmonary mass or suspicious pulmonary nodule. The partially visualized upper abdominal viscera are within normal limits. The thoracic vertebral body heights remain intact alignment without significant degenerative change or acute osseous abnormality. Impression: 1. Demonstration of a focal pulmonary contusion within the posterior superior aspect of the right lower lobe with likely an associated pneumatocele versus a trace focal pneumothorax seen best on series 6 images 79 through 82. 2. Comminuted fracture of the mid right clavicle. 3. Otherwise, no evidence of a displaced rib fracture or large volume pneumothorax/acute cardiopulmonary abnormality. Please note that all CT scans at this facility use dose modulation, iterative reconstruction, and/or weight-based dosing when appropriate to reduce radiation dose to as low as reasonably achievable. Dictated by Jonah Shen MD @ 02/03/2025 8:32:02 PM Discharge Plan Discharge Clinical Impression: Right clavicle fracture, Pulmonary contusion Patient Disposition: Home, Self-Care Condition: Improved Instructions: Clavicle Fracture (DC), Pulmonary Contusion (ED) Additional Instructions: As we discussed, low threshold for return to the ER if you are having worsening or severe chest pain, shortness of breath, or other concerning new symptoms. Otherwise, you can use the sling for comfort. I would recommend that you follow-up with Orthopedics, you can call on Thursday to schedule an appointment at [phone]. Ibuprofen 400 mg plus or minus Tylenol 1000 mg 3 times daily for baseline pain control. Oxycodone if needed for severe pain. Prescriptions: No Action norgestimate-ethinyl estradiol [Aure] 0.25-0.035 mg tablet 1 tab PO DAILY Follow Up/Referrals: Provider,Not a Local [Primary Care Provider, Family Practice] Stand Alone Forms: Noquo Info Instructions
[2025-02-03 20:32] LABS: Hematocrit* 40.4 % (33.0-51.0); Hemoglobin* 13.4 gm/dL (12.0-16.0); Immature Granulocytes Abs Auto 0.01 K/uL (0.00-0.30); Immature Granulocytes Pct Auto 0.1 %; Lymphocytes Absolute Auto 2.92 K/uL (0.90-2.90); Mean Corpuscular HGB Conc 33 gm/dL (32-36); Mean Corpuscular Hemoglobin 30 pg (26-34); Mean Corpuscular Volume 89 fL (80-100); RDW Coefficient of Variation % 11.6 % (11.5-15.5); Red Blood Count* 4.52 m/uL (4.00-5.20); White Blood Count* 7.29 K/uL (4.50-11.00)
[2025-02-03 20:34] LABS: Slide Review Reflex No
== END 2025-02-03 21:25 | disposition home or self-care (01) ==
PROVIDERS: Emergency Provider Emergency Medicine
DX: S42.001A Fracture of unspecified part of right clavicle, initial encounter for closed fracture (principal); V80.010A Animal-rider injured by fall from or being thrown from horse in noncollision accident, initial encounter; S27.321A Contusion of lung, unilateral, initial encounter
CPT/HCPCS: 36415; 70450; 71045; 71260; 72125; 80053; 85025; 96374; 99284; 99291; J1171; J7030; Q9967